=== PATIENT | female | born 1960 | race Caucasian/White ===

== ENCOUNTER 2016-09-12 06:06 | Emergency (ER) | payer OTHER ==
--- NOTE | ~2016-09-12 | EKG ---
PATIENT: SANJUANA CLAYTON UNIT #: [id number] Ventricular Rate: 87 BPM Atrial Rate: 87 BPM P-R Interval: 138 ms QRS Duration: 88 ms Q-T Interval: 372 ms QTC Calculation(Bezet): 447 ms P Phil Campbell: 69 degrees Calculated R Phil Campbell: 39 degrees Calculated T Phil Campbell: 64 degrees Diagnosis Line: Normal sinus rhythm Diagnosis Line: Possible Left atrial enlargement Diagnosis Line: Borderline ECG Diagnosis Line: No previous ECGs available Diagnosis Line: Confirmed by CLAIRE LI MD ([id number]) on Diagnosis Line: 09/12/2016 8:23:31 AM INTERPRETING MD: JEN BUCK
== END 2016-09-12 07:10 | disposition home or self-care (01) ==
LOC: CED 06:06
DX: B02.9 Zoster without complications (principal); F17.210 Nicotine dependence, cigarettes, uncomplicated
CPT/HCPCS: 93005; 99283